=== PATIENT | female | born 1965 | race American Indian/Alaskan Native ===

== ENCOUNTER 2020-06-01 22:33 | Observation (INO) | payer BC, OTHER ==
--- NOTE | 2020-06-01 23:29 | Emergency Department Report ---
ED Palpitations HPI - General Chief Complaint: Chest Pain Stated Complaint: DEFIBULATOR FIRING Time Seen by Provider: 06/01/20 23:04 Source: patient, EMS Mode of arrival: Stretcher Limitations: No Limitations - History of Present Illness Initial Comments: Chief complaint: "My defibrillator went off 4 times." HPI: Is a 55-year-old female with history of hypertension congestive heart failure, AICD in place, breast cancer remission who presents with AICD firing 4 different times. The first time occurred while she was dancing. She fell to the ground when the AICD fired. Patient subsequently had the AICD fired 3 times. Patient has had AICD firing only one time on previous occasion. She is visiting her daughter from [place]. She came to [place] for birthday alliance party. She did drink alcohol and use marijuana today. She was in her normal state of health. She has severe right chest wall tenderness. Patient's AICD is a Medtronic device. Outside records from [facility] confirmed that patient did have LifeVest in 2014. Patient is followed by physician Dr. Mcginnis Patient's Kristopher Camacho was extremely helpful his phone number is [phone] Medications obtained from : Carvedilol Entresto Aspirin [facility] MD Complaint: rapid heart beat -: Sudden, This evening Context: occured during rest, occured during exertion Arrythmia History: AICD (AICD firing x4 times) Associated Symptoms: other (Chest wall tenderness) Treatments Prior to Arrival: other (EMS transport) - Related Data Allergies Allergy/AdvReac Type Severity Reaction Status Date / Time lisinopril Allergy Angioedema Verified 06/01/20 23:14 spironolactone Allergy Itching Verified 06/01/20 23:14 [From Aldactone] ED Review of Systems ROS: Stated complaint: DEFIBULATOR FIRING Other details as noted in HPI Comment: All other systems reviewed and negative Constitutional: denies: fever, malaise Respiratory: denies: cough, shortness of breath Cardiovascular: chest pain. denies: palpitations Gastrointestinal: denies: abdominal pain, nausea, vomiting ED Past Medical Hx - Past Medical History Previous Medical History?: Yes Hx Hypertension: Yes Hx Congestive Heart Failure: Yes Additional medical history: Breast cancer - Surgical History Past Surgical History?: Yes Additional Surgical History: Tubal ligation, hysterectomy, mastectomy, AICD - Social History Smoking Status: Former Smoker Substance Use Type: Alcohol, Marijuana ED Physical Exam - General Limitations: No Limitations General appearance: alert, in no apparent distress, appears intoxicated, other (Alert cooperative slightly slurred speech labile mood) - Head Head exam: Present: atraumatic, normocephalic - Eye Eye exam: Present: normal appearance - ENT ENT exam: Present: mucous membranes moist - Neck Neck exam: Present: normal inspection, full ROM. Absent: tenderness, meningismus - Respiratory Respiratory exam: Present: normal lung sounds bilaterally. Absent: respiratory distress, wheezes, rales, rhonchi - Cardiovascular Cardiovascular Exam: Present: normal rhythm, tachycardia, normal heart sounds. Absent: systolic murmur, diastolic murmur, rubs, gallop - GI/Abdominal GI/Abdominal exam: Present: soft, normal bowel sounds. Absent: distended, tenderness, guarding, rebound - Extremities Exam Extremities exam: Present: normal inspection - Neurological Exam Neurological exam: Present: alert, oriented X3 - Psychiatric Psychiatric exam: Present: normal affect, normal mood - Skin Skin exam: Present: warm, dry, intact, normal color. Absent: rash ED Course Vital Signs 06/01/20 06/01/20 06/01/20 22:41 22:45 23:00 Pulse Rate 126 H 117 H Respiratory 24 18 21 Rate Blood Pressure 137/91 137/91 O2 Sat by Pulse 95 97 Oximetry 06/01/20 06/01/20 06/01/20 23:15 23:31 23:45 Pulse Rate 113 H 114 H 111 H Respiratory 25 H 17 25 H Rate Blood Pressure 149/95 133/87 139/95 O2 Sat by Pulse 93 95 95 Oximetry 06/02/20 06/02/20 06/02/20 00:01 00:15 00:31 Pulse Rate 112 H 110 H 106 H Respiratory 24 24 21 Rate Blood Pressure 139/95 125/87 133/94 O2 Sat by Pulse 93 93 91 Oximetry 06/02/20 06/02/20 06/02/20 00:45 01:01 01:15 Pulse Rate 108 H 101 H 102 H Respiratory 22 23 23 Rate Blood Pressure 122/92 128/92 118/85 O2 Sat by Pulse 94 96 95 Oximetry 06/02/20 06/02/20 06/02/20 01:31 01:45 02:01 Pulse Rate 104 H 103 H 104 H Respiratory 20 20 20 Rate Blood Pressure 128/92 131/87 123/81 O2 Sat by Pulse 94 94 95 Oximetry 06/02/20 06/02/20 02:15 02:31 Pulse Rate 101 H 98 H Respiratory 23 21 Rate Blood Pressure 114/82 115/88 O2 Sat by Pulse 96 95 Oximetry - Reevaluation(s) Reevaluation #1: 06/02/20 01:16 Nursing staff spoke with in order to confirm brand. I spoke directly with [employer] car sales representative. She was hesitant to come to the emergency department since Medtronic device was not registered. I sent x-ray images of the device to Bronwyn directly. She spoke with her tech-support team. She confirmed that the AICD is likely a Medtronic device. Reevaluation #2: 06/02/20 02:17 Operative report obtained from [facility] confirmed that patient had Medtronic ICD implanted. [employer] did not have patient's name. Patient's maiden name Shaw was in the Medtr[employer] database. ED Medical Decision Making - Lab Data Result diagrams: 06/01/20 23:12 06/01/20 23:12 - EKG Data EKG shows normal: sinus rhythm, axis Rate: tachycardia - EKG Data Interpretation: nonspecific ST-T wave dimas, LVH 06/01/20 23:54 EKG obtained 2305 EKG interpreted by me Sinus tachycardia rate 115 bpm normal axis prolonged QTC positive LVH no ST elevation - Radiology Data Radiology results: report reviewed, image reviewed Chest radiograph: No acute disease according to radiology impression, there is a support device present with leads - Medical Decision Making AICD discharge,: I spoke with [employer] car sales representative in order to have device interrogated. CBC chemistry troponin x2 all within normal limits. EKG upon arrival revealed sinus tachycardia 115 bpm. Med[employer]onic interrogation revealed that patient was paced appropriately and shocked 6x4 ventricular tachycardia. Patient OptiVol fluid index was elevated. [facility] has increased volume fluid overload according to this technology index. I spoke with business services intern Dr. Rhodes who recommended increasing carvedilol dose. He will consider amiodarone once inpatient consultation is completed. Patient is admitted to the hospital service in stable condition. First dose carvedilol given in the emergency department. Critical care attestation.: If time is entered above; I have spent that time in minutes in the direct care of this critically ill patient, excluding procedure time. ED Disposition Clinical Impression: Ventricular tachycardia, Acute systolic heart failure, AICD discharge Disposition: OP ADMIT IP TO THIS HOSP Is pt being admited?: Yes Does the pt Need Aspirin: No Condition: Stable
--- NOTE | 2020-06-01 23:46 | XRay Report ---
CHEST 1 VIEW INDICATION: Chest Pain COMPARISON: 04/05/2020 FINDINGS: Support devices: None Heart: Upper limits of normal, unchanged. Lungs/Pleura: Suboptimal inspiration but no convincing evidence of pleural fluid or parenchymal disea se. IMPRESSION: 1. No acute disease. Signer Name: Benjamin Gonzalez MD Signed: 06/01/2020 11:41 PM Workstation Name: [id number]
[2020-06-01 23:48] LABS: Basophils # (Auto) 0.1 K/mm3 (0.0-0.1); Basophils % (Auto) 0.6 % (0.0-1.8); Eosinophils % (Auto) 0.6 % (0.0-4.3); Hematocrit 35.4 % (30.3-42.9); Hemoglobin 11.6 gm/dl (10.1-14.3); Lymphocytes % (Auto) 22.2 % (13.4-35.0); Mean Corpuscular HGB Conc 33 % (30-34); Mean Corpuscular Volume 78 fl (79-97); Monocytes # (Auto) 0.5 K/mm3 (0.0-0.8); Monocytes % (Auto) 6.1 % (0.0-7.3); Platelet Count 198 K/mm3 (140-440); Red Blood Count 4.52 M/mm3 (3.65-5.03); Red Cell Distribution Width 16.1 % (13.2-15.2)
[2020-06-01 23:56] LABS: Alanine Aminotransferase 20 units/L (7-56); Albumin 4.1 g/dL (3.9-5); BUN/Creatinine Ratio 14; Blood Urea Nitrogen 10 mg/dL (7-17); Calcium 8.5 mg/dL (8.4-10.2); Hemolysis Index 0
[2020-06-02] MEDS ORDERED: carvediloL 6.25 MG TAB PO ONE (02:57)
[2020-06-02] MEDS ORDERED: NITROGLYCERIN 0.4 MG TAB SUBL SL PRN (03:14)
[2020-06-02] MEDS ORDERED: ACETAMINOPHEN 325 MG TAB PO PRN (03:14)
[2020-06-02] MEDS ORDERED: traMADol 50 MG TAB PO PRN (03:14)
--- NOTE | 2020-06-02 03:23 | History and Physical Report ---
History of Present Illness Date of examination: 06/02/20 Date of admission: 06/02/20 Chief complaint: Chest pain My defibrillator went off 6 times History of present illness: 55-year-old female with history of hypertension congestive heart failure, AICD in place, breast cancer remission was brought to the emergency room with AICD firing 6 different times. she was dancing when it happens first. She fell to the ground when the AICD fired. Patient subsequently had the AICD fired 3 times. Patient has had AICD firing only one time on previous occasion. She is visiting her daughter from [place]. She came to [place] for birthday alliance party. She did drink alcohol and use marijuana today. She was in her normal state of health. She has severe right chest wall tenderness. Patient's AICD is a Medtronic device. Outside records from [facility] confirmed that patient did have LifeVest in 2014. Patient is followed by physician Dr. Mcginnis Past History Past Medical History: CAD, heart failure, hypertension Medications and Allergies Allergies Allergy/AdvReac Type Severity Reaction Status Date / Time lisinopril Allergy Angioedema Verified 06/01/20 23:14 spironolactone Allergy Itching Verified 06/01/20 23:14 [From Aldactone] Active Meds: Active Medications Acetaminophen (Acetaminophen 325 Mg Tab) 650 mg PO Q6H PRN PRN Reason: Pain, Mild (1-3) Aspirin (Aspirin Ec 325 Mg Tab) 325 mg PO QDAY [facility] Atorvastatin Calcium (Atorvastatin 40 Mg Tab) 40 mg PO QHS [facility] Carvedilol (Carvedilol 3.125 Mg Tab) 12.5 mg PO BID [facility] Morphine Sulfate (Morphine 4 Mg/1 Ml Inj) 2 mg IV Q5MIN PRN PRN Reason: Chest Pain Nitroglycerin (Nitroglycerin 0.4 Mg Tab Subl) 0.4 mg SL Q5M PRN PRN Reason: Chest Pain Pantoprazole Sodium (Pantoprazole 40 Mg Tab) 40 mg PO QDAY [facility] Sodium Chloride (Sodium Chloride 0.9% 10 Ml Flush Syringe) 10 ml IV PRN PRN PRN Reason: LINE FLUSH Tramadol HCl (Tramadol 50 Mg Tab) 50 mg PO Q6H PRN PRN Reason: Pain, Moderate (4-6) Review of Systems Cardiovascular: chest pain, palpitations Exam - Constitutional Vitals: Temp Pulse Resp BP Pulse Ox 100 H 19 115/85 96 06/02/20 03:01 06/02/20 03:01 06/02/20 03:01 06/02/20 03:01 General appearance: Present: no acute distress, well-nourished - EENT Eyes: Present: PERRL ENT: hearing intact, clear oral mucosa - Neck Neck: Present: supple, normal ROM - Respiratory Respiratory effort: normal Respiratory: bilateral: diminished - Cardiovascular Heart Sounds: Present: S1 & S2. Absent: rub, click - Extremities Extremities: pulses symmetrical, No edema Peripheral Pulses: within normal limits - Abdominal General gastrointestinal: Present: soft, non-tender, non-distended, normal bowel sounds Female genitourinary: Present: normal - Integumentary Integumentary: Present: clear, warm, dry - Musculoskeletal Musculoskeletal: gait normal, strength equal bilaterally - Psychiatric Psychiatric: appropriate mood/affect, intact judgment & insight - Neurologic Neurologic: CNII-XII intact, moves all extremities HEART Score - HEART Score Age: 45-65 Risk factors: 1-2 risk factors Troponin: Troponin T < 0.010 ng/mL (0.00-0.029) 06/01/20 23:12 Troponin: < normal limit Results - Labs CBC & Chem 7: 06/01/20 23:12 06/01/20 23:12 Labs: Laboratory Last Values WBC 8.9 K/mm3 (4.5-11.0) 06/01/20 23:12 RBC 4.52 M/mm3 (3.65-5.03) 06/01/20 23:12 Hgb 11.6 gm/dl (10.1-14.3) 06/01/20 23:12 Hct 35.4 % (30.3-42.9) 06/01/20 23:12 MCV 78 fl (79-97) L 06/01/20 23:12 MCH 26 pg (28-32) L 06/01/20 23:12 MCHC 33 % (30-34) 06/01/20 23:12 RDW 16.1 % (13.2-15.2) H 06/01/20 23:12 Plt Count 198 K/mm3 (140-440) 06/01/20 23:12 Lymph % (Auto) 22.2 % (13.4-35.0) 06/01/20 23:12 [place] % (Auto) 6.1 % (0.0-7.3) 06/01/20 23:12 Eos % (Auto) 0.6 % (0.0-4.3) 06/01/20 23:12 Baso % (Auto) 0.6 % (0.0-1.8) 06/01/20 23:12 Lymph # (Auto) 2.0 K/mm3 (1.2-5.4) 06/01/20 23:12 [place] # (Auto) 0.5 K/mm3 (0.0-0.8) 06/01/20 23:12 Eos # (Auto) 0.0 K/mm3 (0.0-0.4) 06/01/20 23:12 Baso # (Auto) 0.1 K/mm3 (0.0-0.1) 06/01/20 23:12 Seg Neutrophils % 70.5 % (40.0-70.0) H 06/01/20 23:12 Seg Neutrophils # 6.3 K/mm3 (1.8-7.7) 06/01/20 23:12 Sodium 142 mmol/L (137-145) 06/01/20 23:12 Potassium 4.1 mmol/L (3.6-5.0) 06/01/20 23:12 Chloride 106.1 mmol/L (98-107) 06/01/20 23:12 Carbon Dioxide 23 mmol/L (22-30) 06/01/20 23:12 Anion Gap 17 mmol/L 06/01/20 23:12 BUN 10 mg/dL (7-17) 06/01/20 23:12 Creatinine 0.7 mg/dL (0.6-1.2) 06/01/20 23:12 Estimated GFR > 60 ml/min 06/01/20 23:12 BUN/Creatinine Ratio 14 % 06/01/20 23:12 Glucose 100 mg/dL (65-100) 06/01/20 23:12 Calcium 8.5 mg/dL (8.4-10.2) 06/01/20 23:12 Phosphorus 3.80 mg/dL (2.5-4.5) 06/01/20 23:20 Magnesium 1.80 mg/dL (1.7-2.3) 06/01/20 23:20 Total Bilirubin 0.20 mg/dL (0.1-1.2) 06/01/20 23:12 AST 24 units/L (5-40) 06/01/20 23:12 ALT 20 units/L (7-56) 06/01/20 23:12 Alkaline Phosphatase 117 units/L (35-129) 06/01/20 23:12 Troponin T < 0.010 ng/mL (0.00-0.029) 06/01/20 23:12 Total Protein 7.8 g/dL (6.3-8.2) 06/01/20 23:12 Albumin 4.1 g/dL (3.9-5) 06/01/20 23:12 Albumin/Globulin Ratio 1.1 % 06/01/20 23:12 - Imaging and Cardiology EKG: image reviewed Chest x-ray: image reviewed Assessment and Plan VTE prophylaxis?: Chemical Plan of care discussed with patient/family: Yes - Patient Problems (1) AICD discharge Current Visit: Yes Status: Acute Plan to address problem: Admit the patient to the cardiac telemetry. Aspirin 325 mg p.o. daily. Lipitor 40 mg p.o. daily. Coreg 12.5 mg p.o. twice daily. Echocardiogram. We consulted cardiology for evaluation. We also interrogated the AICD in the morning. We will put p.o. amiodarone in the morning. Heparin 5000 units subcu every 8 hours (2) Chest pain Current Visit: Yes Status: Acute Plan to address problem: Aspirin 325 mg p.o. daily. Lipitor 40 mg p.o. daily. Coreg 12.5 mg p.o. twice daily. Echocardiogram. We consulted cardiology for evaluation. We also do the serial troponin. heparin 5000 units subcu every 8 hours (3) Acute systolic heart failure Current Visit: Yes Status: Acute Plan to address problem: Congestive heart failure is a stable. Patient denied any shortness of breath. We will continue the home medication. We also do echocardiogram. (4) Ventricular tachycardia Current Visit: Yes Status: Acute Plan to address problem: Admit the patient to the cardiac telemetry. Aspirin 325 mg p.o. daily. Lipitor 40 mg p.o. daily. Coreg 12.5 mg p.o. twice daily. Echocardiogram. We consulted cardiology for evaluation. We also interrogated the AICD in the morning. We will put p.o. amiodarone in the morning. Heparin 5000 units subcu every 8 hours (5) DVT prophylaxis Current Visit: Yes Status: Acute Plan to address problem: Heparin 5000 units subcu every 8 hours for DVT prophylaxis. Protonix 40 mg p.o. daily for GI prophylaxis. Patient is a full code
[2020-06-02] MEDS ORDERED: ASPIRIN 81 MG TAB CHEW PO ONE (03:43)
[2020-06-02 05:43] LABS: Basophils # (Auto) 0.1 K/mm3 (0.0-0.1); Basophils % (Auto) 0.6 % (0.0-1.8); Eosinophils % (Auto) 0.5 % (0.0-4.3); Hematocrit 36.1 % (30.3-42.9); Hemoglobin 11.9 gm/dl (10.1-14.3); Lymphocytes # (Auto) 2.2 K/mm3 (1.2-5.4); Lymphocytes % (Auto) 23.5 % (13.4-35.0); Mean Corpuscular HGB Conc 33 % (30-34); Mean Corpuscular Volume 79 fl (79-97); Monocytes # (Auto) 0.8 K/mm3 (0.0-0.8); Monocytes % (Auto) 8.2 % (0.0-7.3); Platelet Count 191 K/mm3 (140-440); Red Blood Count 4.55 M/mm3 (3.65-5.03); Red Cell Distribution Width 16.1 % (13.2-15.2)
[2020-06-02] MEDS: HEPARIN 5,000 UNIT/1 ML VIAL SUB-Q SCH ×3 (06:43→23:07)
[2020-06-02 07:22] LABS: Blood Urea Nitrogen 11 mg/dL (7-17); Calcium 8.7 mg/dL (8.4-10.2); Chol/HDL Ratio 3.09 %; HDL Cholesterol 44 mg/dL (40-59); Hemolysis Index 3; LDL Cholesterol,Direct 74 mg/dL (50-130)
[2020-06-02 07:27] LABS: BUN/Creatinine Ratio 18
[2020-06-02] MEDS: MORPHINE 4 MG/1 ML INJ IV PRN ×2 (09:50→20:45)
[2020-06-02] MEDS: PANTOPRAZOLE 40 MG TAB PO SCH (09:52)
[2020-06-02] MEDS ORDERED: carvediloL 12.5 MG TAB PO SCH ×2 (10:00→17:29)
--- NOTE | 2020-06-02 11:19 | Event Note ---
Date: 06/02/20 Patient admitted earlier this morning for pain secondary to AICD firing. She says she is complaining pain at the site of AICD. Continue the pain medications. Cardiology consulted. Patient is also complaining left calf pain and Doppler ultrasound ordered.
--- NOTE | 2020-06-02 17:07 | Consultation ---
History of Present Illness Consult date: 06/02/20 Requesting physician: CHARLIE CALDERÓN Consult reason: other (AICD discharge) History of present illness: The patient resides in [place]. She came to visit her daughter in [place] to celebrate her daughter's birthday yesterday.She claims that she drank some wine at the [employer] and started dancing. While dancing, she received an ICD shock and then sat down in a chair. She subsequently received another shock and then slid down on the floor. She claims that her daughter stated that she lost consciousness. Upon spontaneous arousal, she experienced substernal chest pain. There is no dyspnea, dizziness of palpitations. Interrogation of her device revealed 15 episodes of nonsustained VT, the longest being three seconds. There were five treated VT episodes, three terminated with ATP while two required shock. Past History Past Medical History: CAD, cancer (Breast CA diagnosed in 2012.), COPD, heart failure (Chronic HFrEF), hypertension, hyperlipidemia, other (BRAD, NICMP with EF of 30% in 2014.) Past Surgical History: hysterectomy (partial), mastectomy (Left mastectomy in 2013 for breast cancer, chronic respiratory failure on oxygen therapy, 2 L nc), Other Social history: smoking (Former cigarette smoker), alcohol abuse (Former alcohol abuser), other (She used to smoke marijuana but has stopped.) Family history: denies: no significant family history Medications and Allergies Allergies Allergy/AdvReac Type Severity Reaction Status Date / Time lisinopril Allergy Angioedema Verified 06/01/20 23:14 spironolactone Allergy Itching Verified 06/01/20 23:14 [From Aldactone] Home Medications Medication Instructions Recorded Confirmed Last Taken Type Albuterol Mdi (or & Nicu Only) 2 puff INHALATION Q6H PRN 06/02/20 06/02/20 Unknown History Aspirin 81 mg PO QDAY 06/02/20 06/02/20 06/01/20 History Coreg 3.125 mg PO BID 06/02/20 06/02/20 06/01/20 History Fluticasone/Umeclidin/Vilanter 1 each IH DAILY 06/02/20 06/02/20 06/01/20 History [Trelegy Ellipta 200-62.5-25] Lipitor 40 mg PO QHS 06/02/20 06/02/2005/31/21 History Melatonin 5 mg PO QHS PRN 06/02/20 06/02/20 Unknown History Protonix 40 mg PO QDAY 06/02/20 06/02/20 06/01/20 History Sacubitril/Valsartan 1 tab PO BID 06/02/20 06/02/20 06/01/20 History Active Meds: Active Medications Acetaminophen (Acetaminophen 325 Mg Tab) 650 mg PO Q6H PRN PRN Reason: Pain, Mild (1-3) Aspirin (Aspirin Ec 325 Mg Tab) 325 mg PO QDAY [facility] Atorvastatin Calcium (Atorvastatin 40 Mg Tab) 40 mg PO QHS [facility] Carvedilol (Carvedilol 12.5 Mg Tab) 12.5 mg PO BID [facility] Last Admin: 06/02/20 09:50 Dose: 12.5 mg Documented by: Heparin Sodium (Porcine) (Heparin 5,000 Unit/1 Ml Vial) 5,000 unit SUB-Q Q8HR [facility] Last Admin: 06/02/20 14:30 Dose: 5,000 unit Documented by: Morphine Sulfate (Morphine 4 Mg/1 Ml Inj) 2 mg IV Q5MIN PRN PRN Reason: Chest Pain Last Admin: 06/02/20 09:50 Dose: 2 mg Documented by: Nitroglycerin (Nitroglycerin 0.4 Mg Tab Subl) 0.4 mg SL Q5M PRN PRN Reason: Chest Pain Pantoprazole Sodium (Pantoprazole 40 Mg Tab) 40 mg PO QDAC [facility] Last Admin: 06/02/20 09:52 Dose: 40 mg Documented by: Sodium Chloride (Sodium Chloride 0.9% 10 Ml Flush Syringe) 10 ml IV PRN PRN PRN Reason: LINE FLUSH Tramadol HCl (Tramadol 50 Mg Tab) 50 mg PO Q6H PRN PRN Reason: Pain, Moderate (4-6) Last Admin: 06/02/20 03:48 Dose: 50 mg Documented by: Review of Systems Constitutional: no fever, no chills Ears, nose, mouth and throat: no ear pain, no ear discharge, no sore throat Cardiovascular: chest pain, edema, syncope, no orthopnea, no palpitations, no lightheadedness Respiratory: no cough, no hemoptysis, no shortness of breath Gastrointestinal: no abdominal pain, no nausea, no vomiting, no diarrhea, no constipation Genitourinary Female: no flank pain, no dysuria, no urinary frequency Rectal: no pain, no bleeding Musculoskeletal: no neck stiffness, no neck pain, no myalgias Integumentary: no rash, no pruritis Neurological: no weakness, no parathesias, no headaches Endocrine: no cold intolerance, no heat intolerance Hematologic/Lymphatic: no easy bruising, no easy bleeding Allergic/Immunologic: no urticaria Physical Examination Vital Signs Last Vital Signs Temp 98.2 F 06/02/20 15:47 Pulse 77 06/02/20 15:47 Resp 17 06/02/20 15:47 BP 109/70 06/02/20 15:47 Pulse Ox 100 06/02/20 15:47 General appearance: no acute distress HEENT: Positive: EOMI, Normocephaly, Mucus Membranes Moist Neck: Positive: neck supple, trachea midline Cardiac: Positive: Reg Rate and Rhythm Lungs: Positive: clear to auscultation Abdomen: Positive: Soft, Active Bowel Sounds. Negative: Tender Skin: Positive: Clear. Negative: Rash Musculoskeletal: Normal Range of Motion Extremities: Present: +1 Edema Results 06/02/20 04:53 06/02/20 04:53 Cardiac Enzymes 06/01/20 Range/Units 23:12 AST 24 (5-40) units/L Lipids 06/02/20 Range/Units 04:53 Triglycerides 180 H (2-149) mg/dL Cholesterol 136 (50-199) mg/dL HDL Cholesterol 44 (40-59) mg/dL Cholesterol/HDL Ratio 3.09 % CBC 06/01/20 06/02/20 Range/Units 23:12 04:53 WBC 8.9 9.4 (4.5-11.0) K/mm3 RBC 4.52 4.55 (3.65-5.03) M/mm3 Hgb 11.6 11.9 (10.1-14.3) gm/dl Hct 35.4 36.1 (30.3-42.9) % Plt Count 198 191 (140-440) K/mm3 Lymph # (Auto) 2.0 2.2 (1.2-5.4) K/mm3 Rogers # (Auto) 0.5 0.8 (0.0-0.8) K/mm3 Eos # (Auto) 0.0 0.0 (0.0-0.4) K/mm3 Baso # (Auto) 0.1 0.1 (0.0-0.1) K/mm3 Comprehensive Metabolic Panel 06/01/20 06/02/20 Range/Units 23:12 04:53 Sodium 142 138 (137-145) mmol/L Potassium 4.1 3.7 (3.6-5.0) mmol/L Chloride 106.1 100.6 (98-107) mmol/L Carbon Dioxide 23 23 (22-30) mmol/L BUN 10 11 (7-17) mg/dL Creatinine 0.7 0.6 (0.6-1.2) mg/dL Glucose 100 90 (65-100) mg/dL Calcium 8.5 8.7 (8.4-10.2) mg/dL AST 24 (5-40) units/L ALT 20 (7-56) units/L Alkaline Phosphatase 117 (35-129) units/L Total Protein 7.8 (6.3-8.2) g/dL Albumin 4.1 (3.9-5) g/dL - Imaging and Cardiology EKG: image reviewed EKG interpretations - Telemetry EKG Rhythm: Sinus Tachycardia - EKG Sinus rhythms and dysrhythmias: sinus tachycardia Chamber hypertrophy or enlargement: left ventricular hypertro Assessment and Plan Increase Coreg dose as BP permits. She may require amiodarone therapy. Initiate that IV diuretics. Obtain echocardiogram. Schedule Lexiscan stress MPI in a.m. Resume Entresto if and when BP permits after initiating beta-jelani therapy. - Patient Problems (1) AICD discharge Current Visit: Yes Status: Acute (2) Ventricular tachycardia Current Visit: Yes Status: Acute (3) Syncope Current Visit: Yes Status: Acute (4) NICM (nonischemic cardiomyopathy) Current Visit: Yes Status: Chronic (5) Chronic HFrEF (heart failure with reduced ejection fraction) Current Visit: Yes Status: Acute (6) Chest pain Current Visit: Yes Status: Acute (7) COPD (chronic obstructive pulmonary disease) Current Visit: Yes Status: Chronic (8) Labile blood pressure Current Visit: Yes Status: Chronic (9) Chronic respiratory failure Current Visit: Yes Status: Chronic
[2020-06-02] MEDS: FUROSEMIDE 20 MG/2 ML INJ IV SCH (17:46)
[2020-06-02] MEDS: carvediloL 6.25 MG TAB PO SCH ×2 (17:48→23:09)
[2020-06-02] MEDS ORDERED: FUROSEMIDE 40 MG/4 ML INJ IV SCH (18:00)
--- NOTE | 2020-06-02 19:09 | Vascular Lab Report ---
DUPLEX DOPPLER LOWER EXTREMITY VEINS, LEFT INDICATION / CLINICAL INFORMATION: DVT. TECHNIQUE: Duplex doppler imaging was performed through the veins of the left lower extremity using venous compr ession and other maneuvers. COMPARISON: None available. FINDINGS: LEFT COMMON FEMORAL VEIN: Negative. LEFT FEMORAL VEIN: Negative. LEFT POPLITEAL VEIN: Negative. LEFT CALF VEINS: Negative. ADDITIONAL FINDINGS: None. IMPRESSION: No sonographic evidence for DVT in the left lower extremity. Signer Name: Sergio Shields MD Signed: 06/02/2020 7:05 PM Workstation Name: [id number]
[2020-06-02] MEDS: AMIODARONE 200 MG TAB PO SCH (23:08)
[2020-06-02] MEDS: POTASSIUM CHLORIDE ER 10 MEQ TAB PO SCH (23:08)
[2020-06-03] MEDS: FUROSEMIDE 20 MG/2 ML INJ IV SCH ×2 (05:03→19:32)
[2020-06-03] MEDS: HEPARIN 5,000 UNIT/1 ML VIAL SUB-Q SCH ×3 (05:03→22:13)
[2020-06-03] MEDS ORDERED: REGADENOSON 0.4 MG/5 ML INJ IV ONE ×2 (07:59→10:17)
[2020-06-03] MEDS: PANTOPRAZOLE 40 MG TAB PO SCH (08:08)
[2020-06-03] MEDS: ASPIRIN EC 325 MG TAB PO SCH (12:17)
[2020-06-03] MEDS: carvediloL 6.25 MG TAB PO SCH ×2 (12:18→22:14)
[2020-06-03] MEDS: AMIODARONE 200 MG TAB PO SCH ×3 (12:18→22:14)
[2020-06-03] MEDS: POTASSIUM CHLORIDE ER 10 MEQ TAB PO SCH ×2 (12:18→22:13)
--- NOTE | 2020-06-03 14:04 | Progress Note ---
Assessment and Plan Assessment and plan: #AICD discharge On amiodarone Cardiology consulted #Ventricular tachycardia Started on amiodarone Lexiscan today #Chest pain Lexiscan today #Congestive heart failure Continue home medications History Interval history: Has no complaints. Had stress test today. Awaiting results. Hospitalist Physical - Physical exam Narrative exam: VITAL SIGNS: Reviewed. GENERAL: Awake HEAD: No signs of head trauma. EYES: Pupils are equal. Extraocular motions intact. MOUTH: Oropharynx is normal. NECK: No adenopathy, no JVD. CHEST: Chest with diminished breath sounds bilaterally. No wheezes, rales, or rhonchi. CARDIAC: normal S1 and S2, without murmurs, gallops, or rubs. ABDOMEN: Soft, non tender and non distended. No rebound or guarding, and no masses palpated. Bowel Sounds normal. MUSCULOSKELETAL: No edema NEUROLOGIC EXAM: Alert and oriented x3. No focal neurologic deficits SKIN: No obvious lesions - Constitutional Vitals: Temp Pulse Resp BP Pulse Ox 97.6 F 83 18 111/73 100 06/03/20 08:10 06/03/20 12:18 06/03/20 08:10 06/03/20 10:53 06/03/20 08:10 HEART Score - HEART Score Age: 45-65 Risk factors: 1-2 risk factors Troponin: Troponin T < 0.010 ng/mL (0.00-0.029) 06/02/20 10:15 Troponin: < normal limit Results - Labs CBC & Chem 7: 06/02/20 04:53 06/02/20 04:53 Labs: Laboratory Last Values WBC 9.4 K/mm3 (4.5-11.0) 06/02/20 04:53 RBC 4.55 M/mm3 (3.65-5.03) 06/02/20 04:53 Hgb 11.9 gm/dl (10.1-14.3) 06/02/20 04:53 Hct 36.1 % (30.3-42.9) 06/02/20 04:53 MCV 79 fl (79-97) 06/02/20 04:53 MCH 26 pg (28-32) L 06/02/20 04:53 MCHC 33 % (30-34) 06/02/20 04:53 RDW 16.1 % (13.2-15.2) H 06/02/20 04:53 Plt Count 191 K/mm3 (140-440) 06/02/20 04:53 Lymph % (Auto) 23.5 % (13.4-35.0) 06/02/20 04:53 [place] % (Auto) 8.2 % (0.0-7.3) H 06/02/20 04:53 Eos % (Auto) 0.5 % (0.0-4.3) 06/02/20 04:53 Baso % (Auto) 0.6 % (0.0-1.8) 06/02/20 04:53 Lymph # (Auto) 2.2 K/mm3 (1.2-5.4) 06/02/20 04:53 [place] # (Auto) 0.8 K/mm3 (0.0-0.8) 06/02/20 04:53 Eos # (Auto) 0.0 K/mm3 (0.0-0.4) 06/02/20 04:53 Baso # (Auto) 0.1 K/mm3 (0.0-0.1) 06/02/20 04:53 Seg Neutrophils % 67.2 % (40.0-70.0) 06/02/20 04:53 Seg Neutrophils # 6.3 K/mm3 (1.8-7.7) 06/02/20 04:53 Sodium 138 mmol/L (137-145) 06/02/20 04:53 Potassium 3.7 mmol/L (3.6-5.0) 06/02/20 04:53 Chloride 100.6 mmol/L (98-107) 06/02/20 04:53 Carbon Dioxide 23 mmol/L (22-30) 06/02/20 04:53 Anion Gap 18 mmol/L 06/02/20 04:53 BUN 11 mg/dL (7-17) 06/02/20 04:53 Creatinine 0.6 mg/dL (0.6-1.2) 06/02/20 04:53 Estimated GFR > 60 ml/min 06/02/20 04:53 BUN/Creatinine Ratio 18 % 06/02/20 04:53 Glucose 90 mg/dL (65-100) 06/02/20 04:53 Calcium 8.7 mg/dL (8.4-10.2) 06/02/20 04:53 Phosphorus 3.80 mg/dL (2.5-4.5) 06/01/20 23:20 Magnesium 1.80 mg/dL (1.7-2.3) 06/01/20 23:20 Total Bilirubin 0.20 mg/dL (0.1-1.2) 06/01/20 23:12 AST 24 units/L (5-40) 06/01/20 23:12 ALT 20 units/L (7-56) 06/01/20 23:12 Alkaline Phosphatase 117 units/L (35-129) 06/01/20 23:12 Troponin T < 0.010 ng/mL (0.00-0.029) 06/02/20 10:15 NT-Pro-B Natriuret Pep 2034 pg/mL (0-900) H 06/01/20 23:12 Total Protein 7.8 g/dL (6.3-8.2) 06/01/20 23:12 Albumin 4.1 g/dL (3.9-5) 06/01/20 23:12 Albumin/Globulin Ratio 1.1 % 06/01/20 23:12 Triglycerides 180 mg/dL (2-149) H 06/02/20 04:53 Cholesterol 136 mg/dL (50-199) 06/02/20 04:53 LDL Cholesterol Direct 74 mg/dL (50-130) 06/02/20 04:53 HDL Cholesterol 44 mg/dL (40-59) 06/02/20 04:53 Cholesterol/HDL Ratio 3.09 % 06/02/20 04:53 Goncalves/IV: Voiding Method External Female Catheter Active Medications - Current Medications Current Medications: Generic Name Dose Route Start Last Admin Trade Name Freq PRN Reason Stop Dose Admin Acetaminophen 650 mg 06/02/20 03:14 Acetaminophen 325 Mg Tab PO Q6H PRN Pain, Mild (1-3) Amiodarone HCl 400 mg 06/02/20 22:00 06/03/20 12:18 Amiodarone 200 Mg Tab PO 400 mg BID TRACE Administration Aspirin 325 mg 06/03/20 10:00 06/03/20 12:17 Aspirin Ec 325 Mg Tab PO 325 mg QDAY TRACE Administration Atorvastatin Calcium 40 mg 06/02/20 22:00 06/02/20 23:07 Atorvastatin 40 Mg Tab PO 40 mg QHS TRACE Administration Carvedilol 6.25 mg 06/02/20 17:45 06/03/20 12:18 Carvedilol 6.25 Mg Tab PO 6.25 mg BID TRACE Administration Furosemide 20 mg 06/02/20 18:00 06/03/20 05:03 Furosemide 20 Mg/2 Ml Inj IV 20 mg 0600,1800 TRACE Administration Heparin Sodium (Porcine) 5,000 unit 06/02/20 06:00 06/03/20 05:03 Heparin 5,000 Unit/1 Ml Vial SUB-Q 5,000 unit Q8HR TRACE Administration Morphine Sulfate 2 mg 06/02/20 03:14 06/02/20 20:45 Morphine 4 Mg/1 Ml Inj IV 2 mg Q5MIN PRN Administration Chest Pain Nitroglycerin 0.4 mg 06/02/20 03:14 Nitroglycerin 0.4 Mg Tab Subl SL Q5M PRN Chest Pain Pantoprazole Sodium 40 mg 06/02/20 07:30 06/03/20 08:08 Pantoprazole 40 Mg Tab PO 40 mg QDAC TRACE Administration Potassium Chloride 10 meq 06/02/20 22:00 06/03/20 12:18 Potassium Chloride Er 10 Meq Tab PO 10 meq BID TRACE Administration Sodium Chloride 10 ml 06/02/20 03:14 Sodium Chloride 0.9% 10 Ml Flush Syringe IV PRN PRN LINE FLUSH Tramadol HCl 50 mg 06/02/20 03:14 06/02/20 03:48 Tramadol 50 Mg Tab PO 50 mg Q6H PRN Administration Pain, Moderate (4-6)
--- NOTE | 2020-06-03 14:59 | Progress Note ---
Assessment and Plan 77 y/o female presented to [facility] ER after multiple ICD defibrillation with loss of consciousness and subsequent CP. Of note, pt is from [place] and reports hx of BRCA requiring Chemotherapy in 2012. She reports that she developed cardiomyopathy after receiving chemotherapy. She reports undergoing LHC in 2012 with reported normal coronaries to her knowledge. She reports AICD implantation in 2014. Device Interrogation reviewed- Pt had 15 episodes of nonsustained VT, the longest being three seconds. Also had five treated VT episodes, three terminated with ATP, while other two required 3 shocks before the episode was terminated. AMI ruled out. Home cardiac regimen has been resumed. Amiodarone has been initiated for tachy arrhythmia. Echo (06/02/20 ) reviewed: EF 35-40%. LV moderately dilated. LV systolic function is mildly decreased. s/p Lexiscan MPI stress test today which was TDS, showed mild inferior reversibility, EF 28%. Coronary Angiography recommended for definitive diagnosis. Indications, potential risks and benefits of LHC reviewed with pt at bedside and she is agreeable to proceed with LHC in AM. NPO after midnight. Obtain EP consultation for further recommendations regarding VT. Resume home Entresto. Will follow. This patient was seen in conjunction with Dr Haley Jauregui who agrees with this assessment and plan of care. - Patient Problems (1) AICD discharge Current Visit: Yes Status: Acute (2) Ventricular tachycardia Current Visit: Yes Status: Acute (3) Syncope Current Visit: Yes Status: Acute (4) NICM (nonischemic cardiomyopathy) Current Visit: Yes Status: Chronic (5) Chronic HFrEF (heart failure with reduced ejection fraction) Current Visit: Yes Status: Acute (6) Chest pain Current Visit: Yes Status: Acute (7) COPD (chronic obstructive pulmonary disease) Current Visit: Yes Status: Chronic (8) Labile blood pressure Current Visit: Yes Status: Chronic (9) Chronic respiratory failure Current Visit: Yes Status: Chronic Subjective Date of service: 06/03/20 Principal diagnosis: Defibrillator Firing Interval history: This patient was seen in stress lab, resting comfortably. Telemetry reviewed:SR 77. Had bout of 15 beat VT overnight. Objective Last Vital Signs Temp 97.6 F 06/03/20 08:10 Pulse 83 06/03/20 12:18 Resp 18 06/03/20 08:10 BP 111/73 06/03/20 10:53 Pulse Ox 100 06/03/20 08:10 - Physical Examination General: No Apparent Distress HEENT: Positive: EOMI, Normocephaly, Mucus Membranes Moist Neck: Positive: neck supple, trachea midline Cardiac: Positive: Reg Rate and Rhythm, S1/S2 Lungs: Positive: clear to auscultation, Normal Breath Sounds Neuro: Positive: Grossly Intact Abdomen: Positive: Soft, Active Bowel Sounds. Negative: Tender Skin: Positive: Clear. Negative: Rash Musculoskeletal: Normal Range of Motion Extremities: Present: upper extr. pulses, lower extr. pulses, +1 Edema - Imaging and Cardiology EKG: report reviewed, image reviewed Echo: report reviewed (Echo (06/02/20 ) reviewed: EF 35-40%. LV moderately dilated. LV systolic function is mildly decreased.) - Telemetry EKG Rhythm: Sinus Rhythm - EKG Sinus rhythms and dysrhythmias: sinus tachycardia Chamber hypertrophy or enlargement: left ventricular hypertro
[2020-06-03] MEDS ORDERED: traMADol 50 MG TAB PO PRN (15:18)
[2020-06-03] MEDS ORDERED: HYDROcodone/ACETAMINOPHEN 5-325 MG TAB PO PRN (15:18)
[2020-06-03] MEDS: MORPHINE 4 MG/1 ML INJ IV PRN (15:25)
[2020-06-03] MEDS ORDERED: SODIUM CHLORIDE 0.9% 500 ML 500 ML IV SCH (16:00)
[2020-06-03] MEDS: SACUBITRIL/VALSARTAN 24-26 MG TAB PO SCH (23:02)
[2020-06-04 05:20] LABS: Hematocrit 35.7 % (30.3-42.9); Hemoglobin 11.8 gm/dl (10.1-14.3); Mean Corpuscular HGB Conc 33 % (30-34); Mean Corpuscular Volume 78 fl (79-97); Platelet Count 200 K/mm3 (140-440); Red Cell Distribution Width 15.9 % (13.2-15.2)
[2020-06-04 05:37] LABS: Blood Urea Nitrogen 13 mg/dL (7-17); Calcium 8.4 mg/dL (8.4-10.2); Hemolysis Index 6
[2020-06-04 05:40] LABS: INR 0.96 (0.87-1.13)
[2020-06-04 06:17] LABS: BUN/Creatinine Ratio 22
[2020-06-04] MEDS: FUROSEMIDE 20 MG/2 ML INJ IV SCH ×2 (06:52→17:35)
[2020-06-04] MEDS: HEPARIN 5,000 UNIT/1 ML VIAL SUB-Q SCH ×3 (06:52→22:31)
[2020-06-04] MEDS ORDERED: HEPARIN/NS 5000 UNIT/500ML 1,000 ML IR ONE (07:56)
[2020-06-04] MEDS ORDERED: LIDOCAINE (2%) 20 MG/1 ML VIAL 20 ML MDV INFILTRATI ONE (07:57)
[2020-06-04] MEDS ORDERED: NITROGLYCERIN SYRINGE 3 ML ONE (07:57)
[2020-06-04] MEDS ORDERED: SODIUM CHLORIDE 0.9% 500 ML 500 ML ONE (08:05)
[2020-06-04] MEDS ORDERED: methylPREDNISolone Sod Succinate 125 MG/2 ML INJ ONE (08:21)
[2020-06-04] MEDS ORDERED: diphenhydrAMINE 50 MG/ML VIAL ONE (08:21)
[2020-06-04] MEDS: ASPIRIN EC 325 MG TAB PO SCH ×2 (08:26→13:34)
[2020-06-04] MEDS ORDERED: FAMOTIDINE 20 MG/2 ML INJ IV ONE (08:26)
[2020-06-04] MEDS: MIDAZOLAM 2 MG/2 ML INJ ONE ×2 (08:39→08:43)
[2020-06-04] MEDS: fentaNYL 100 MCG/2 ML INJ ONE ×2 (08:39→08:43)
[2020-06-04] MEDS: HEPARIN 10,000 UNITS/10 ML VIAL ONE ×2 (08:40→08:46)
[2020-06-04] MEDS: VERAPAMIL 5 MG/2 ML INJ ONE ×2 (08:40→08:46)
--- NOTE | 2020-06-04 09:17 | Cardiac Catherization Report ---
CARDIAC CATHETERIZATION REFERRING PHYSICIAN: Hospitalist service. INDICATION FOR PROCEDURE: The patient is a pleasant 55-year-old -Portuguese female, who was having appropriate VT shocks with her defibrillator and found to have an abnormal stress test with inferior ischemia, brought to the label rewinder for left heart catheterization. Risks, benefits, potential alternatives explained at length prior to obtaining informed consent. PROCEDURE IN DETAIL: The patient was seen by label rewinder in a postabsorptive state, prepped and draped in sterile fashion. Miles's test in right hand was normal. A 2 mL of 2% lidocaine used to anesthetize the right wrist. A standard 5-Estonian hydrophilic sheath was used to cannulate the right radial artery via modified Seldinger technique. All exchanges performed to exchange a J-tip guidewire. JL3.5 catheter used to engage the left main. No dampening or ventricularization. Cineangiography performed in multiple projections. JR4 catheter used to cross the aortic valve under fluoroscopic guidance. Left ventriculography in TEJADA and 30 MACEDONIAN projections via hand injections, catheter flushed. Manual pullback performed with continuous pressure monitoring. Catheter used to engage the right coronary. No dampening or ventricularization. Cineangiography performed in all projections. JR4 catheter was used to cross the aortic valve under fluoroscopic guidance. Left ventriculography performed in 30 TEJADA and MACEDONIAN projections via hand injections, catheter flushed. Manual pullback performed with continuous pressure monitoring. Catheter used to engage the right coronary. No dampening or ventricularization. Cineangiography performed in all projections. Next, catheter removed from the body of wire, sheath removed. Manual pressure used to achieve hemostasis. I directly supervised the administration of moderate sedation from 8:40 a.m. to 9:10 a.m. with fentanyl and Versed. No immediate complications. DATA: Aortic pressure is 120/80, LV pressure is 120, LVP of 20 mmHg. Left ventriculography reveals [id number] global left ventricular hypokinesis, estimated ejection fraction of 35-40%. No evidence of aortic stenosis, mildly elevated LVEDP. CORONARY ANATOMY: This is a right dominant system. Right coronary is a moderate sized vessel, courses AV groove, distally bifurcates into posterior and posterolateral branches. No discrete stenosis noted. Left main without significant disease, bifurcates left anterior descending and left circumflex. Left main without significant disease and bifurcates LAD and left circumflex. Left circumflex, moderate sized vessel, courses AV groove. No significant disease. LAD is a moderate sized vessel, courses anterior intergroove, wraps around the apex, no significant disease. The patient remained in normal sinus rhythm throughout the procedure. No immediate complications identified. CONCLUSIONS: 1. No angiographic evidence of significant epicardial coronary disease in this right dominant system. 2. [id number] global left ventricular hypokinesis, estimated ejection fraction of 35-40%. 3. No evidence of aortic stenosis. 4. High normal LVEDP. These findings are consistent with a [id number] nonischemic dilated cardiomyopathy, which is relatively well compensated. Given the patient came in with appropriate primary VT shocks, consider adding amiodarone. We will consult Electrophysiology. Results of procedure explained to the patient and family. All questions were addressed. JOB# [id number] KARLOS/CLAUDE
[2020-06-04] MEDS: AMIODARONE 200 MG TAB PO SCH ×2 (12:27→22:30)
[2020-06-04] MEDS: POTASSIUM CHLORIDE ER 10 MEQ TAB PO SCH ×2 (12:27→22:31)
[2020-06-04] MEDS: carvediloL 6.25 MG TAB PO SCH ×2 (12:28→22:30)
[2020-06-04] MEDS: PANTOPRAZOLE 40 MG TAB PO SCH (12:28)
--- NOTE | 2020-06-04 15:42 | Progress Note ---
Assessment and Plan 77 y/o female presented to [facility] ER after multiple ICD defibrillation with loss of consciousness and subsequent CP. Of note, pt is from [place] and reports hx of BRCA requiring Chemotherapy in 2012. She reports that she developed cardiomyopathy after receiving chemotherapy. She reports undergoing LHC in 2012 with reported normal coronaries to her knowledge. She reports AICD implantation in 2014. Device Interrogation reviewed- Pt had 15 episodes of nonsustained VT, the longest being three seconds. Also had five treated VT episodes, three terminated with ATP, while other two required 3 shocks before the episode was terminated. Echo (06/02/20 ) reviewed: EF 35-40%. LV moderately dilated. LV systolic function is mildly decreased. s/p LHC today (06/04/20): Normal Coronary Arteries Pt is normotensive. Continue current cardiac regimen. Discussed with EP- [employer] rep is scheduled to adjust Bivicd in AM per EP recs. Repeat 12 lead after complete. Pt to continue Amiodarone 200mg PO BID post d/c. Anticipate d/c once changes are confirmed. This patient was seen in conjunction with Dr Haley Jauregui who agrees with this assessment and plan of care. - Patient Problems (1) AICD discharge Current Visit: Yes Status: Acute (2) Ventricular tachycardia Current Visit: Yes Status: Acute (3) Syncope Current Visit: Yes Status: Acute (4) NICM (nonischemic cardiomyopathy) Current Visit: Yes Status: Chronic (5) Chronic HFrEF (heart failure with reduced ejection fraction) Current Visit: Yes Status: Acute (6) Chest pain Current Visit: Yes Status: Acute (7) COPD (chronic obstructive pulmonary disease) Current Visit: Yes Status: Chronic (8) Labile blood pressure Current Visit: Yes Status: Chronic (9) Chronic respiratory failure Current Visit: Yes Status: Chronic (9) Normal Coronary Arteries Current Visit: Yes Status: Chronic Subjective Date of service: 06/04/20 Principal diagnosis: Defibrillator Firing Interval history: Patient resting in bed comfortably. Telemetry reviewed:SR 72. No events overnight. Objective Last Vital Signs Temp 98.4 F 06/04/20 11:29 Pulse 77 06/04/20 12:28 Resp 20 06/04/20 11:29 BP 127/71 06/04/20 12:28 Pulse Ox 100 06/04/20 11:29 - Physical Examination General: No Apparent Distress HEENT: Positive: EOMI, Normocephaly, Mucus Membranes Moist Neck: Positive: neck supple, trachea midline Cardiac: Positive: Reg Rate and Rhythm, S1/S2 Lungs: Positive: clear to auscultation, Normal Breath Sounds Neuro: Positive: Grossly Intact Abdomen: Positive: Soft, Active Bowel Sounds. Negative: Tender Skin: Positive: Clear. Negative: Rash Musculoskeletal: Normal Range of Motion Extremities: Present: upper extr. pulses, lower extr. pulses, +1 Edema - Labs and Meds Coagulation 06/04/20 Range/Units 04:41 PT 12.7 (12.2-14.9) Sec. INR 0.96 (0.87-1.13) CBC 06/04/20 Range/Units 04:41 WBC 9.5 (4.5-11.0) K/mm3 RBC 4.60 (3.65-5.03) M/mm3 Hgb 11.8 (10.1-14.3) gm/dl Hct 35.7 (30.3-42.9) % Plt Count 200 (140-440) K/mm3 Comprehensive Metabolic Panel 06/04/20 Range/Units 04:41 Sodium 135 L (137-145) mmol/L Potassium 4.4 (3.6-5.0) mmol/L Chloride 102.7 (98-107) mmol/L Carbon Dioxide 23 (22-30) mmol/L BUN 13 (7-17) mg/dL Creatinine 0.6 (0.6-1.2) mg/dL Glucose 104 H (65-100) mg/dL Calcium 8.4 (8.4-10.2) mg/dL - Imaging and Cardiology EKG: report reviewed, image reviewed Echo: report reviewed (Echo (06/02/20 ) reviewed: EF 35-40%. LV moderately dilated. LV systolic function is mildly decreased.) - Telemetry EKG Rhythm: Sinus Rhythm - EKG Sinus rhythms and dysrhythmias: sinus tachycardia Chamber hypertrophy or enlargement: left ventricular hypertro
--- NOTE | 2020-06-04 16:17 | Progress Note ---
Assessment and Plan Assessment and plan: #Ventricular tachycardia with AICD discharge On amiodarone Lexiscan +ve. LHC showed no significant stenosis AICD to be adjusted by device prep in AM #Chest pain LHC negative for significant stenosis #Congestive heart failure Continue home medications History Interval history: Has no complaints. Her cath showed no significant stenosis. Cardiology to see Hospitalist Physical - Physical exam Narrative exam: VITAL SIGNS: Reviewed. GENERAL: Awake HEAD: No signs of head trauma. EYES: Pupils are equal. Extraocular motions intact. MOUTH: Oropharynx is normal. NECK: No adenopathy, no JVD. CHEST: Chest with diminished breath sounds bilaterally. No wheezes, rales, or rhonchi. CARDIAC: normal S1 and S2, without murmurs, gallops, or rubs. ABDOMEN: Soft, non tender and non distended. No rebound or guarding, and no masses palpated. Bowel Sounds normal. MUSCULOSKELETAL: No edema NEUROLOGIC EXAM: Alert and oriented x3. No focal neurologic deficits SKIN: No obvious lesions - Constitutional Vitals: Temp Pulse Resp BP Pulse Ox 98.4 F 77 20 127/71 100 06/04/20 11:29 06/04/20 12:28 06/04/20 11:29 06/04/20 12:28 06/04/20 11:29 HEART Score - HEART Score Age: 45-65 Risk factors: 1-2 risk factors Troponin: Troponin T < 0.010 ng/mL (0.00-0.029) 06/02/20 10:15 Troponin: < normal limit Results - Labs CBC & Chem 7: 06/04/20 04:41 06/04/20 04:41 Labs: Laboratory Last Values WBC 9.5 K/mm3 (4.5-11.0) 06/04/20 04:41 RBC 4.60 M/mm3 (3.65-5.03) 06/04/20 04:41 Hgb 11.8 gm/dl (10.1-14.3) 06/04/20 04:41 Hct 35.7 % (30.3-42.9) 06/04/20 04:41 MCV 78 fl (79-97) L 06/04/20 04:41 MCH 26 pg (28-32) L 06/04/20 04:41 MCHC 33 % (30-34) 06/04/20 04:41 RDW 15.9 % (13.2-15.2) H 06/04/20 04:41 Plt Count 200 K/mm3 (140-440) 06/04/20 04:41 Lymph % (Auto) 23.5 % (13.4-35.0) 06/02/20 04:53 [place] % (Auto) 8.2 % (0.0-7.3) H 06/02/20 04:53 Eos % (Auto) 0.5 % (0.0-4.3) 06/02/20 04:53 Baso % (Auto) 0.6 % (0.0-1.8) 06/02/20 04:53 Lymph # (Auto) 2.2 K/mm3 (1.2-5.4) 06/02/20 04:53 [place] # (Auto) 0.8 K/mm3 (0.0-0.8) 06/02/20 04:53 Eos # (Auto) 0.0 K/mm3 (0.0-0.4) 06/02/20 04:53 Baso # (Auto) 0.1 K/mm3 (0.0-0.1) 06/02/20 04:53 Seg Neutrophils % 67.2 % (40.0-70.0) 06/02/20 04:53 Seg Neutrophils # 6.3 K/mm3 (1.8-7.7) 06/02/20 04:53 PT 12.7 Sec. (12.2-14.9) 06/04/20 04:41 INR 0.96 (0.87-1.13) 06/04/20 04:41 Sodium 135 mmol/L (137-145) L 06/04/20 04:41 Potassium 4.4 mmol/L (3.6-5.0) 06/04/20 04:41 Chloride 102.7 mmol/L (98-107) 06/04/20 04:41 Carbon Dioxide 23 mmol/L (22-30) 06/04/20 04:41 Anion Gap 14 mmol/L 06/04/20 04:41 BUN 13 mg/dL (7-17) 06/04/20 04:41 Creatinine 0.6 mg/dL (0.6-1.2) 06/04/20 04:41 Estimated GFR > 60 ml/min 06/04/20 04:41 BUN/Creatinine Ratio 22 % 06/04/20 04:41 Glucose 104 mg/dL (65-100) H 06/04/20 04:41 POC Glucose 104 mg/dL (70-105) 06/04/20 07:10 Calcium 8.4 mg/dL (8.4-10.2) 06/04/20 04:41 Phosphorus 3.80 mg/dL (2.5-4.5) 06/01/20 23:20 Magnesium 1.80 mg/dL (1.7-2.3) 06/01/20 23:20 Total Bilirubin 0.20 mg/dL (0.1-1.2) 06/01/20 23:12 AST 24 units/L (5-40) 06/01/20 23:12 ALT 20 units/L (7-56) 06/01/20 23:12 Alkaline Phosphatase 117 units/L (35-129) 06/01/20 23:12 Troponin T < 0.010 ng/mL (0.00-0.029) 06/02/20 10:15 NT-Pro-B Natriuret Pep 2034 pg/mL (0-900) H 06/01/20 23:12 Total Protein 7.8 g/dL (6.3-8.2) 06/01/20 23:12 Albumin 4.1 g/dL (3.9-5) 06/01/20 23:12 Albumin/Globulin Ratio 1.1 % 06/01/20 23:12 Triglycerides 180 mg/dL (2-149) H 06/02/20 04:53 Cholesterol 136 mg/dL (50-199) 06/02/20 04:53 LDL Cholesterol Direct 74 mg/dL (50-130) 06/02/20 04:53 HDL Cholesterol 44 mg/dL (40-59) 06/02/20 04:53 Cholesterol/HDL Ratio 3.09 % 06/02/20 04:53 Goncalves/IV: Voiding Method Toilet Active Medications - Current Medications Current Medications: Generic Name Dose Route Start Last Admin Trade Name Freq PRN Reason Stop Dose Admin Acetaminophen 650 mg 06/02/20 03:14 Acetaminophen 325 Mg Tab PO Q6H PRN Pain, Mild (1-3) Hydrocodone Bitart/Acetaminophen 1 each 06/03/20 15:18 Hydrocodone/Acetaminophen 5-325 Mg Tab PO Q4H PRN Pain, Moderate (4-6) Amiodarone HCl 200 mg 06/03/20 16:30 06/04/20 12:27 Amiodarone 200 Mg Tab PO 200 mg BID TRACE Administration Aspirin 81 mg 06/05/20 10:00 Aspirin Ec 81 Mg Tab PO QDAY TRACE Atorvastatin Calcium 40 mg 06/02/20 22:00 06/03/20 22:13 Atorvastatin 40 Mg Tab PO 40 mg QHS TRACE Administration Carvedilol 6.25 mg 06/02/20 17:45 06/04/20 12:28 Carvedilol 6.25 Mg Tab PO 6.25 mg BID TRACE Administration Furosemide 20 mg 06/02/20 18:00 06/04/20 06:52 Furosemide 20 Mg/2 Ml Inj IV Not Given 0600,1800 [facility] Heparin Sodium (Porcine) 5,000 unit 06/02/20 06:00 06/04/20 13:34 Heparin 5,000 Unit/1 Ml Vial SUB-Q 5,000 unit Q8HR [facility] Administration Morphine Sulfate 2 mg 06/02/20 03:14 06/03/20 15:25 Morphine 4 Mg/1 Ml Inj IV 2 mg Q5MIN PRN Administration Chest Pain Nitroglycerin 0.4 mg 06/02/20 03:14 Nitroglycerin 0.4 Mg Tab Subl SL Q5M PRN Chest Pain Pantoprazole Sodium 40 mg 06/02/20 07:30 06/04/20 12:28 Pantoprazole 40 Mg Tab PO 40 mg QDAC TRACE Administration Potassium Chloride 10 meq 06/02/20 22:00 06/04/20 12:27 Potassium Chloride Er 10 Meq Tab PO 10 meq BID [facility] Administration Sodium Chloride 10 ml 06/02/20 03:14 06/03/20 22:15 Sodium Chloride 0.9% 10 Ml Flush Syringe IV 10 ml PRN PRN Administration LINE FLUSH Tramadol HCl 50 mg 06/03/20 15:18 Tramadol 50 Mg Tab PO Q4H PRN Pain, Mild (1-3)
[2020-06-04] MEDS: SACUBITRIL/VALSARTAN 24-26 MG TAB PO SCH ×2 (17:35→22:30)
[2020-06-05] MEDS: FUROSEMIDE 20 MG/2 ML INJ IV SCH (06:30)
[2020-06-05] MEDS: HEPARIN 5,000 UNIT/1 ML VIAL SUB-Q SCH ×2 (06:30→14:49)
--- NOTE | 2020-06-05 07:01 | Progress Note ---
Assessment and Plan 55 F Ventricular tachycardia S/P 5 ICD shocks Dilated CM EF 35% chronic HFrEF H/O CVA Hypertension Hyperlipidemia COPD/BRAD History of Breast CA/Chemo Patient has previous history with amiodarone for ICD shocks Agree with Amio 200mg BID 12 Lead EKG tomorrow Spoke with [employer] rep to interrogate device and make changes to detection zones Patient will need to follow up with EP in [place] Dr. Mcginnis Subjective Date of service: 06/04/20 Principal diagnosis: Defibrillator Firing Interval history: Pt sitting up in bed without complaints. Objective Vital Signs Temp Pulse Pulse Resp BP BP Pulse Ox 06/05/20 03:44 97.7 F 74 16 110/69 94 06/04/20 22:42 97.3 F L 82 16 112/71 99 06/04/20 22:30 87 129/75 06/04/20 22:00 18 06/04/20 19:41 97.2 F L 87 18 129/75 98 06/04/20 19:16 98.2 F 16 133/86 06/04/20 16:53 98.0 F 18 123/70 06/04/20 16:16 113/78 06/04/20 16:14 115/82 06/04/20 15:18 94 H 115/82 06/04/20 14:45 92 H 120/74 99 06/04/20 12:28 77 127/71 06/04/20 11:29 98.4 F 75 20 127/71 100 - Physical Examination General: No Apparent Distress HEENT: Positive: EOMI, Normocephaly, Mucus Membranes Moist Neck: Positive: neck supple, trachea midline Cardiac: Positive: Reg Rate and Rhythm Lungs: Positive: clear to auscultation Neuro: Positive: Grossly Intact Abdomen: Positive: Soft, Active Bowel Sounds. Negative: Tender Skin: Positive: Clear. Negative: Rash Musculoskeletal: Normal Range of Motion Extremities: Present: upper extr. pulses, lower extr. pulses, +1 Edema - Imaging and Cardiology EKG: report reviewed, image reviewed Echo: report reviewed (Echo (06/02/20 ) reviewed: EF 35-40%. LV moderately dilated. LV systolic function is mildly decreased.) - EKG Sinus rhythms and dysrhythmias: sinus tachycardia Chamber hypertrophy or enlargement: left ventricular hypertro
--- NOTE | 2020-06-05 08:39 | Electrocardiograph Report ---
[facility] Test Date: 2020-06-01 Test Time: 23:05:09 Pat Name: SHELIA SALGUERO Department: Room: A487 1 Gender: F Cardiograph Operator: TERRELL : 1965 Requested By: YAZMIN BLAND Order Number: [id number] Reading MD: Nitesh Jauregui Measurements Intervals [place] Rate: 115 P: 62 OK: 169 QRS: 29 QRSD: 82 T: -30 QT: 339 QTc: 470 Interpretive Statements Sinus tachycardia Atrial premature complex Left ventricular hypertrophy Probable anterior infarct, old Nonspecific T abnormalities, lateral leads No previous ECG available for comparison Electronically Signed On 06-05-2020 5:39:25 PDT by Nitesh Jauregui
[2020-06-05] MEDS: PANTOPRAZOLE 40 MG TAB PO SCH (08:40)
[2020-06-05] MEDS: AMIODARONE 200 MG TAB PO SCH (09:59)
[2020-06-05] MEDS ORDERED: ASPIRIN EC 81 MG TAB PO SCH (10:00)
[2020-06-05] MEDS: carvediloL 6.25 MG TAB PO SCH (10:00)
[2020-06-05] MEDS: SACUBITRIL/VALSARTAN 24-26 MG TAB PO SCH (10:00)
[2020-06-05] MEDS: POTASSIUM CHLORIDE ER 10 MEQ TAB PO SCH (10:00)
--- NOTE | 2020-06-05 10:09 | Treadmill Report ---
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
[2020-06-05 11:04] VITALS: BP 129/77
--- NOTE | 2020-06-05 12:02 | Progress Note ---
Assessment and Plan 77 y/o female presented to [facility] after multiple ICD defibrillation with loss of consciousness and subsequent CP. Of note, pt is from [place] and reports hx of BRCA requiring Chemotherapy in 2012. She reports that she developed cardiomyopathy after receiving chemotherapy. She reports undergoing LHC in 2012 with reported normal coronaries to her knowledge. She reports AICD implantation in 2014. Device Interrogation reviewed- Pt had 15 episodes of nonsustained VT, the longest being three seconds. Also had five treated VT episodes, three terminated with ATP, while other two required 3 shocks before the episode was terminated. Echo (06/02/20 ) reviewed: EF 35-40%. LV moderately dilated. LV systolic function is mildly decreased. s/p LHC yesterday (06/04/20): Normal Coronary Arteries Telemetry reviewed:SR 78. Bout of vtach 3 beats overnight. EP recs noted: Cogne[employer]tronic rep interrogated device and implemented new settings per EP recs. 12 Lead today shows NSR, normal qt interval.Pt is to continue Amiodarone PO 200mg BID post discharge. Pt is currently stable cardiac status. She appears to be nearing/at euvolemia. Convert IV lasix to PO Lasix 40mg daily. COntinue home coreg and entresto. Pt may discharge from cardiology standpoint. Recommend pt to f/u with her cardiology in [place] within 1-2 wks. Pt verbalizes understanding. This patient was seen in conjunction with Dr Haley Jauregui who agrees with this assessment and plan of care. - Patient Problems (1) AICD discharge Current Visit: Yes Status: Acute (2) Ventricular tachycardia Current Visit: Yes Status: Acute (3) Syncope Current Visit: Yes Status: Acute (4) NICM (nonischemic cardiomyopathy) Current Visit: Yes Status: Chronic (5) Chronic HFrEF (heart failure with reduced ejection fraction) Current Visit: Yes Status: Acute (6) Chest pain Current Visit: Yes Status: Acute (7) COPD (chronic obstructive pulmonary disease) Current Visit: Yes Status: Chronic (8) Labile blood pressure Current Visit: Yes Status: Chronic (9) Chronic respiratory failure Current Visit: Yes Status: Chronic (9) Normal Coronary Arteries Current Visit: Yes Status: Chronic Subjective Date of service: 06/05/20 Principal diagnosis: Defibrillator Firing Interval history: Patient resting in bed comfortably. Telemetry reviewed:SR 78. Bout of vtach 3 beats overnight. Objective Last Vital Signs Temp 98.7 F 06/05/20 10:53 Pulse 78 06/05/20 10:53 Resp 18 06/05/20 10:53 BP 129/77 06/05/20 10:53 Pulse Ox 98 06/05/20 10:53 - Physical Examination General: No Apparent Distress HEENT: Positive: EOMI, Normocephaly, Mucus Membranes Moist Neck: Positive: neck supple, trachea midline Cardiac: Positive: Reg Rate and Rhythm, S1/S2 Lungs: Positive: clear to auscultation, Normal Breath Sounds Neuro: Positive: Grossly Intact Abdomen: Positive: Soft, Active Bowel Sounds. Negative: Tender Skin: Positive: Clear. Negative: Rash Incision: Cardiac Cath Site (s/p [facility] 06/04/20- R Radial site is unremarkable with no bleeding, hematoma, erythema or exudate noted.) Musculoskeletal: Normal Range of Motion Extremities: Present: upper extr. pulses, lower extr. pulses. Absent: edema - Imaging and Cardiology EKG: report reviewed, image reviewed Echo: report reviewed (Echo (06/02/20 ) reviewed: EF 35-40%. LV moderately dilated. LV systolic function is mildly decreased.) - Telemetry EKG Rhythm: Sinus Rhythm - EKG Sinus rhythms and dysrhythmias: sinus tachycardia Chamber hypertrophy or enlargement: left ventricular hypertro
--- NOTE | 2020-06-05 12:30 | Discharge Summary ---
Providers - Providers Date of Admission: 06/02/20 02:57 Date of discharge: 06/05/20 Attending physician: YOLIE PASTRANA 06/02/20 Consult to Cardiac Rehabilitation [CONS] Routine Reason For Exam: Phase I 06/02/20 02:48 Consult to Physician [CONS] Stat Comment: Dr. Soliz spoke with Dr. Kemp @ 0250 Consulting Provider: BAO KEMP Physician Instructions: Reason For Exam: Ventricular tachycardia, systolic heart failure 06/03/20 15:18 Consult to Cardiac Rehabilitation [CONS] Routine Reason For Exam: Cardiac Rehab Evaluation Primary care physician: LEGAL PROJECT MANAGER Hospitalization Condition: Stable Hospital course: 55-year-old female with history of hypertension congestive heart failure, AICD in place, breast cancer remission was brought to the emergency room with AICD firing 6 different times. she was dancing when it happens first. She fell to the ground when the AICD fired. Patient subsequently had the AICD fired 3 times. Patient has had AICD firing only one time on previous occasion. She is visiting her daughter from [place]. 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 She did drink alcohol and use marijuana today. She was in her normal state of health. She has severe right chest wall tenderness. Patient's AICD is a Medtr[employer] device. Outside records from [facility] confirmed that patient did have LifeVest in 2014. Patient is followed by physician Dr. Mcginnis. Hospital course Here in the ED, she was started on amiodaronae and cardiology was consulted. A stress test performed was abnormal and she had a left heart catheterization that showed no significant stenosis. She was subsequently evaluated by the spare fixer and her AICD was interrogated. She has been cleared for discharge by cardiology. She will need to follow up with her proj mgr in [place] in 2 weeks. She will continue amiodarone as ordered. She agrees with plan. Final Discharge Diagnosis (Prints w/discharge instructions): Ventricular tachycardia Time spent for discharge: 32 mins - Discharge Diagnoses (1) AICD discharge Status: Acute (2) Chronic HFrEF (heart failure with reduced ejection fraction) Status: Acute (3) Ventricular tachycardia Status: Acute Core Measure Documentation - Palliative Care Palliative Care/ Comfort Measures: Not Applicable - Core Measures Any of the following diagnoses?: none Exam - Physical Exam Narrative exam: VITAL SIGNS: Reviewed. GENERAL: Awake HEAD: No signs of head trauma. EYES: Pupils are equal. Extraocular motions intact. MOUTH: Oropharynx is normal. NECK: No adenopathy, no JVD. CHEST: Chest with diminished breath sounds bilaterally. No wheezes, rales, or rhonchi. CARDIAC: normal S1 and S2, without murmurs, gallops, or rubs. ABDOMEN: Soft, non tender and non distended. No rebound or guarding, and no masses palpated. Bowel Sounds normal. MUSCULOSKELETAL: No edema NEUROLOGIC EXAM: Alert and oriented x3. No focal neurologic deficits SKIN: No obvious lesions - Constitutional Vitals: Temp Pulse Resp BP Pulse Ox 98.7 F 78 18 129/77 98 06/05/20 10:53 06/05/20 10:53 06/05/20 10:53 06/05/20 10:53 06/05/20 10:53 Plan Additional Instructions: Continue amiodarone. Coreg has been increased to 6.25 mg twice a day. Continue rest of home medications. Follow up with your proj mgr in a week for review of medications Follow up with: PRIMARY CARE, [Primary Care Provider] - 7 Days Prescriptions: Amiodarone [Cordarone 200 MG TAB] 200 mg PO BID #60 tablet carvediloL [Coreg] 6.25 mg PO BID #60 tablet
--- NOTE | 2020-06-05 16:08 | Treadmill Report ---
NUCLEAR STRESS TEST REFERRING PHYSICIAN: Hospitalist service and Dr. Rhodes PROTOCOL: The patient was assessed in postabsorptive state, given 10 mCi of technetium 99m at rest. The patient underwent rest imaging. The patient underwent Lexiscan stress test per standard protocol. At peak stress, the patient was given 26 mCi of transportation engineering technician 99m. Shortly thereafter, the patient underwent stress imaging. Raw imaging reveals mild GI artifact, no significant motion artifact. SPECT imaging examined carefully in horizontal long axis, vertical long axis, short axis views. There is a moderate size reversible inferior apical defect, questionable reversible ischemia. Gated wall motion reveals severe global left ventricular hypokinesis, estimated ejection fraction of 30%. CONCLUSIONS: 1. Abnormal myocardial perfusion scan with moderate sized inferior and inferoapical reversible defect concerning for ischemia. 2. Severe global left ventricular hypokinesis with an estimated ejection fraction of 30%. JOB# [id number] SBM/NTS
[2020-06-06] MEDS ORDERED: FUROSEMIDE 40 MG TAB PO SCH (10:00)
--- NOTE | 2020-06-07 10:12 | Electrocardiograph Report ---
[facility] Test Date: 2020-06-03 Test Time: 10:19:54 Pat Name: SHELIA SALGUERO Department: Room: A487 1 Gender: F Peanut Butter Maker: BRITTANEY : 1965 Requested By: CHARLIE CALDERÓN Order Number: [id number] Reading MD: Noelle Genao Measurements Intervals [place] Rate: 77 P: 43 [place]: 194 QRS: 16 QRSD: 84 T: -43 QT: 418 QTc: 475 Interpretive Statements Sinus rhythm Consider left ventricular hypertrophy Nonspecific T abnormalities, lateral leads Compared to ECG 06/01/2020 23:05:09 Sinus tachycardia no longer present Atrial premature complex(es) no longer present T-wave abnormality still present Electronically Signed On 06-07-2020 10:12:12 EDT by Noelle Genao
--- NOTE | 2020-06-07 10:25 | Electrocardiograph Report ---
[facility] Test Date: 2020-06-04 Test Time: 10:12:00 Pat Name: SHELIA SALGUERO Department: Room: A487 1 Gender: F Tutor Coordinator: BRITTANEY : 1965 Requested By: CHARLIE CALDERÓN Order Number: [id number] Reading MD: Noelle Genao Measurements Intervals [place] Rate: 72 P: 40 ME: 207 QRS: 5 QRSD: 83 T: 7 QT: 428 QTc: 468 Interpretive Statements Sinus rhythm Borderline prolonged ME interval Consider left ventricular hypertrophy Nonspecific T abnrm, anterolateral leads Compared to ECG 06/03/2020 10:19:54 T-wave abnormality no longer present Electronically Signed On 06-07-2020 10:25:17 EDT by Noelle Genao
--- NOTE | 2020-06-07 10:35 | Electrocardiograph Report ---
[facility] Test Date: 2020-06-05 Test Time: 08:44:15 Pat Name: SHELIA SALGUERO Department: Room: A487 1 Gender: F Floor Winder: BRITTANEY : 1965 Requested By: ALPESH NASCIMENTO Order Number: [id number] Reading MD: Noelle Genao Measurements Intervals [place] Rate: 71 P: 48 SC: 199 QRS: 7 QRSD: 86 T: -65 QT: 427 QTc: 464 Interpretive Statements Sinus rhythm Left ventricular hypertrophy Nonspecific T abnormalities, diffuse leads Compared to ECG 06/04/2020 10:12:00 T-wave abnormality now present Electronically Signed On 06-07-2020 10:35:25 EDT by Noelle Genao
--- NOTE | 2020-06-07 10:38 | Electrocardiograph Report ---
[facility] Test Date: 2020-06-05 Test Time: 10:02:54 Pat Name: SHELIA SALGUERO Department: Room: A487 1 Gender: F Antique Refinisher: BRITTANEY : 1965 Requested By: YOLIE PASTRANA Order Number: [id number] Reading MD: Noelle Genao Measurements Intervals [place] Rate: 74 P: 40 DC: 199 QRS: 2 QRSD: 88 T: 257 QT: 412 QTc: 457 Interpretive Statements Sinus rhythm Left ventricular hypertrophy Abnrm T, consider ischemia, anterolateral lds Compared to ECG 06/04/2020 10:12:00 No significant change Electronically Signed On 06-07-2020 10:38:10 EDT by Noelle Genao
== END 2020-06-05 14:49 | disposition home or self-care (01) ==
LOC: ED 22:33 → 4A 06-02 02:57
PROVIDERS: ADMIT Hospitalist; ATTEND Internal Medicine
DX: I11.0 Hypertensive heart disease with heart failure (principal); I50.21 Acute systolic (congestive) heart failure; I47.2 Ventricular tachycardia; I25.10 Atherosclerotic heart disease of native coronary artery without angina pectoris; J96.10 Chronic respiratory failure, unspecified whether with hypoxia or hypercapnia; T82.198A Other mechanical complication of other cardiac electronic device, initial encounter; I42.8 Other cardiomyopathies; E78.5 Hyperlipidemia, unspecified; G47.33 Obstructive sleep apnea (adult) (pediatric); R55 Syncope and collapse; R07.89 Other chest pain; J44.9 Chronic obstructive pulmonary disease, unspecified; Z45.02 Encounter for adjustment and management of automatic implantable cardiac defibrillator; Z79.82 Long term (current) use of aspirin; Z98.51 Tubal ligation status; Z90.710 Acquired absence of both cervix and uterus; Z98.890 Other specified postprocedural states; Z85.3 Personal history of malignant neoplasm of breast; Z87.891 Personal history of nicotine dependence
CPT/HCPCS: 36415; 71045; 78452; 80048; 80053; 80061; 82962; 83735; 83880; 84100; 84484; 85025; 85027; 85610; 93005; 93017; 93306; 93458; 93971; 96372; 96374; 96375; 96376; 99285; A9270; A9502; C1894; G0378; J1200; J1644; J1940; J2250; J2270; J2785; J2930; J3010; J7040; Q9967